=== PATIENT | female | born 1935 | race African-American/Black ===

== ENCOUNTER 2020-02-10 18:56 | Emergency (ER) | payer MEDICARE ==
[~2020-02-10] VITALS: Ht 157.5 cm; Wt 53.6 kg
--- NOTE | 2020-02-10 19:44 | PHYS DOC ---
Past History Past Medical History: Dementia, Depression, Hypertension (CARRIE NOVAK APRN) Past Surgical History: Hysterectomy, Other Additional Past Surgical Histo: urethra, hernia repair (CARRIE NOVAK APRN) Alcohol Use: None (CARRIE NOVAK APRN) Adult General Chief Complaint Chief Complaint: WEAKNESS/GENERALIZED HPI HPI Patient is a 85-year-old female patient who presents with increased falls, weakness, over the last 2 weeks. Daughter reports patient has a history of dementia, has had some declining state over last few weeks as well, with increa sed agitation and violence from the patient. Reports patient had fallen while walking couple days ago, as well as had fallen while seated on the edge of the bed this morning. Reports patient had not been this bad in the past. Daughter also reports patient had been hallucinating as well over the last 2 weeks. Does report patient having 1 similar episode a couple years ago when she had been severely dehydrated. Reports patient also is not eating correctly, will chew her food and then spit it back out. States patient will eat 1 meal a day. This has not changed over the last couple weeks. Patient reports that she feels fine, has no complaints at this time. (CARRIE NOVAK APRN) Review of Systems Review of Systems Constitutional: Denies fever or chills daughter. Patient has had increased weakness and fatigue over the last several weeks [] Eyes: Denies change in visual acuity, redness, or eye pain [] HENT: Denies nasal congestion or sore throat [] Respiratory: Denies cough or shortness of breath [] Cardiovascular: No additional information not addressed in HPI [] GI: Denies abdominal pain, nausea, vomiting, bloody stools or diarrhea [] : Denies dysuria or hematuria does report increased incontinence over the last couple weeks [] Musculoskeletal: Denies back pain or joint pain [] Integument: Denies rash or skin lesions [] Neurologic: Denies headache, focal weakness or sensory changes [] Endocrine: Denies polyuria or polydipsia [] All other systems were reviewed and found to be within normal limits, except as documented in this note. Limited history available from patient due to patient's dementia. Majority of history obtained from daughter who serves with patient caregiver (CARRIE NOVAK APRN) Physical Exam Physical Exam Constitutional: Well developed, well nourished, no acute distress, non-toxic appearance. Chronically frail [] HENT: Normocephalic, atraumatic, bilateral external ears normal, oropharynx moist, no oral exudates, nose normal. [] Eyes: PERRLA, EOMI, conjunctiva normal, no discharge. [] Neck: Normal range of motion, no tenderness, supple, no stridor. [] Cardiovascular:Heart rate regular rhythm, no murmur [] Lungs & Thorax: Bilateral breath sounds clear to auscultation [] Abdomen: Bowel sounds normal, soft, no tenderness, no masses, no pulsatile masses. [] Skin: Warm, dry, no erythema, no rash. [] Back: No tenderness, no CVA tenderness. [] Extremities: No tenderness, no cyanosis, no clubbing, ROM intact, no edema. [] Neurologic: Alert and oriented to self and place, normal motor function, normal sensory function, no focal deficits noted. [] Psychologic: Affect normal,mood normal. [] (CARRIE NOVAK APRN) Current Patient Data Vital Signs Vital Signs Date Time Temp Pulse Resp B/P (MAP) Pulse Ox O2 Delivery O2 Flow Rate FiO2 02/10/20 19:00 100.1 71 18 91/39 (56) 98 Room Air (CARRIE NOVAK APRN) EKG EKG no st change per Dr Sparrow @2024. first degree av block. [] (CARRIE NOVAK APRN) Radiology/Procedures Radiology/Procedures REASON: change in mental status PROCEDURE: CT HEAD WO CONTRAST CT HEAD INDICATION: Altered mental status COMPARISON: None Available. Exposure: One or more of the following individualized dose reduction techniques were utilized for this examination: 1. Automated exposure control 2. Adjustment of the mA and/or kV according to patient size 3. Use of iterative reconstruction technique TECHNIQUE: 5 mm contiguous axial images were obtained from the skull base to the vertex in both bone and soft tissue algorithm. FINDINGS: Mild bilateral pulmonary ventricular white matter hypodensities likely chronic small vessel ischemic disease. No evidence of acute intracranial hemorrhage. No extra-axial fluid collections. No mass effect or midline shift. Ventricular size is appropriate. Basal cisterns are patent. No fractures identified.Jarquin-white differentiation is preserved.Globes and orbits are within normal limits. Paranasal sinuses and mastoid air cells are clear. IMPRESSION: No acute intracranial findings. Electronically signed by: Pierre Cortes MD (02/10/2020 9:03 PM) [id number] [] CHest 1 View - NO acute findings per Dr Sparrow (CARRIE NOVAK APRN) Heart Score HEART Score for Chest Pain: HEART Score for Chest Pain Response (Comments) Value History Slighlty/Non-Suspicious 0 ECG Normal 0 Age > 65 2 Risk Factors No Risk Factors 0 Troponin < Normal Limit 0 Total 2 Risk Factors: Risk Factors: DM, Current or recent (<one month) smoker, HTN, HLP, family history of CAD, obesity. Risk Scores: Risk Factors: DM, Current or recent (<one month) smoker, HTN, HLP, family history of CAD, obesity. (CARRIE NOVAK APRN) Course & Med Decision Making Course & Med Decision Making Pertinent Labs and Imaging studies reviewed. (See chart for details) [Discussed findings with patient caregiver, with no acute signs of infection or serious lab abnormalities today. Discussed consideration for Covid due to low white count, imaging and additional labs do not show any high risk features of Covid. Discussed ensuring patient continue to hydrate, attempt to continue to eat and drink and continued observation. Family in agreement with this plan, states they will take the patient home tonight with no further questions or concerns.] (CARRIE NOVAK APRN) Dragon Disclaimer Dragon Disclaimer This electronic medical record was generated, in whole or in part, using a voice recognition dictation system. (CARRIE NOVAK APRN) Departure Departure: Impression: Primary Impression: Malaise Additional Impressions: Dementia in Alzheimer's disease with early onset with behavioral disturbance Dehydration Disposition: 01 DC HOME SELF CARE/HOMELESS Condition: STABLE Referrals: PCP,NO (PCP) Patient Instructions: Dementia, Weakness, [id number] Additional Instructions: As we discussed, make sure she continues to use her walker when she is walking to limit her risk for falls. Make sure she continue to try to eat and stay hydrated as much as you can. Try to get into her primary care provider to make sure she is improving, try to do this in the next 5 to 7 days. Attending Signature Attending Signature I have reviewed the PA/CASTING ASSOCIATE's note and plan of care. I was available for consultation as needed during the patient's visit in the emergency department. I agree with the clinical impression, plan, and disposition. (CATHY SPARROW DO) Problem Qualifiers CARRIE NOVAK APRN Feb 10, 2020 19:44 CATHY SPARROW DO Feb 10, 2020 22:06
[2020-02-10 20:05] LABS: COLOR,URINE YELLOW
[2020-02-10 20:06] LABS: BACTERIA,URINE FEW /HPF (0-FEW); BILIRUBIN,URINE NEG (NEG); CLARITY,URINE CLEAR; GLUCOSE,URINE NEG (NEG); NITRITE,URINE NEG (NEG); RBC,URINE RARE /HPF (0-2); SQUAMOUS EPITHELIAL CELL,UR FEW /LPF; UROBILINOGEN,URINE 0.2 mg/dL (0.2 mg/dL); WBC,URINE RARE /HPF (0-4)
[2020-02-10 20:15] LABS: BASO % 0 % (0-3); EOS % 0 % (0-3); HEMATOCRIT 32.7 % (36.0-47.0); HEMOGLOBIN 10.5 g/dL (12.0-15.5); LYMPH # 0.6 x10^3/uL (1.0-4.8); LYMPH % 18 % (24-48); MEAN CORPUSCULAR HEMOGLOBIN 29 pg (25-35); MEAN CORPUSCULAR HGB CONC 32 g/dL (31-37); MEAN CORPUSCULAR VOLUME 89 fL (79-100); MONO # 0.3 x10^3/uL (0.0-1.1); MONO % 8 % (0-9); NEUT # 2.4 x10^3uL (1.8-7.7); NEUT % 73 % (31-73); PLATELET COUNT 161 x10^3/uL (140-400); RED BLOOD COUNT 3.67 x10^6/uL (3.50-5.40); RED CELL DISTRIBUTION WIDTH 14.4 % (11.5-14.5); WHITE BLOOD COUNT 3.3 x10^3/uL (4.0-11.0)
[2020-02-10] MEDS ORDERED: IV NORMAL SALINE 1,000ML 1,000 ML IV ONE (20:15)
[2020-02-10 20:23] LABS: CALCIUM 9.5 mg/dL (8.5-10.1); CREATININE 1.5 mg/dL (0.6-1.0); GFR 39.8; POTASSIUM 3.5 mmol/L (3.5-5.1)
[2020-02-10 20:29] LABS: ALBUMIN 3.4 g/dL (3.4-5.0); ALBUMIN/GLOBULIN RATIO 0.9 (1.0-1.7); TOTAL BILIRUBIN 0.2 mg/dL (0.2-1.0); TOTAL PROTEIN 7.4 g/dL (6.4-8.2)
--- NOTE | 2020-02-10 21:05 | RAD ---
CT HEAD INDICATION: Altered mental status COMPARISON: None Available. Exposure: One or more of the following individualized dose reduction techniques were utilized for this examination: 1. Automated exposure control 2. Adjustment of the mA and/or kV according to patient size 3. Use of iterative reconstruction technique TECHNIQUE: 5 mm contiguous axial images were obtained from the skull base to the vertex in both bone and soft tissue algorithm. FINDINGS: Mild bilateral pulmonary ventricular white matter hypodensities likely chronic small vessel ischemic disease. No evidence of acute intracranial hemorrhage. No extra-axial fluid collections. No mass effect or midline shift. Ventricular size is appropriate. Basal cisterns are patent. No fractures identified.Jarquin-white differentiation is preserved.Globes and orbits are within normal limits. Paranasal sinuses and mastoid air cells are clear. IMPRESSION: No acute intracranial findings. Electronically signed by: Pierre Cortes MD (02/10/2020 9:03 PM) [id number]
[2020-02-10 21:50] VITALS: BP 142/56
--- NOTE | 2020-02-10 23:15 | RAD ---
EXAM: CHEST ONE VIEW. HISTORY: Altered mental status. COMPARISON: None. FINDINGS: A frontal view of the chest is obtained. There are no confluent infiltrates. There is no pneumothorax or pleural effusion. The heart is not enlarged. There are atherosclerotic calcifications of the aorta. IMPRESSION: 1. No confluent infiltrates. Electronically signed by: Radha Wilson MD (02/10/2020 11:12 PM) [facility]
== END 2020-02-10 22:00 | disposition home or self-care (01) ==
LOC: ER 18:56
DX: R53.81 Other malaise (principal); G30.9 Alzheimer's disease, unspecified; F02.80 Dementia in other diseases classified elsewhere, unspecified severity, without behavioral disturbance, psychotic disturbance, mood disturbance, and anxiety; E86.0 Dehydration; R44.3 Hallucinations, unspecified; R53.1 Weakness; F32.9 Major depressive disorder, single episode, unspecified; I10 Essential (primary) hypertension; Z90.710 Acquired absence of both cervix and uterus; Z98.890 Other specified postprocedural states
CPT/HCPCS: 36415; 70450; 71045; 80053; 81001; 83605; 84484; 85025; 87040; 93005; 96360; 99285; J7030

== ENCOUNTER 2020-09-06 00:45 | Emergency (ER) | payer MEDICARE, MEDICAID ==
[~2020-09-06] VITALS: Ht 157.5 cm; Wt 53.6 kg
--- NOTE | 2020-09-06 01:02 | PHYS DOC ---
Past History Past Medical History: Arthritis, Dementia, Depression, Hypertension Past Surgical History: Hysterectomy, Other Additional Past Surgical Histo: urethra, hernia repair Alcohol Use: None General Adult EDM: Chief Complaint: MECHANICAL FALL HPI: HPI: 85-year-old female presents via EMS from home after fall. The patient went into the bathroom around midnight, 1 hour ago and she fell into the shower. Family states that they heard a noise. When they went into the bathroom the patient had fallen backwards into the shower. Her upper torso and head were against the back wall and the rest of her body was against the floor. She had 1 episode of vomiting. She was able to stand and be moved to her bed. She started to complain about low back pain. The patient has osteoporosis of family thought it was best to get her checked out. Patient only complains to me of low back pain with movement. She denies any hip or pelvis pain. Review of Systems: Review of Systems: Constitutional: Denies fever or chills Eyes: Denies change in visual acuity HENT: Denies nasal congestion or sore throat Respiratory: Denies cough or shortness of breath Cardiovascular: Denies chest pain or edema GI: Denies abdominal pain, nausea, vomiting, bloody stools or diarrhea : Denies dysuria Musculoskeletal: Low back pain Integument: Denies rash Neurologic: Denies headache, focal weakness or sensory changes Endocrine: Denies polyuria or polydipsia Lymphatic: Denies swollen glands Psychiatric: Denies depression or anxiety Allergies: Allergies: Allergies Coded Allergies Type Severity Reaction Last Updated Verified nifedipine Allergy Unknown 02/10/20 Yes Physical Exam: PE: Constitutional: Well developed, well nourished, no acute distress, non-toxic appearance. [] HENT: Normocephalic, atraumatic, bilateral external ears normal, oropharynx moist, no oral exudates, nose normal. Hard of hearing. [] Eyes: PERRLA, EOMI, conjunctiva normal, no discharge. [] Neck: Normal range of motion, no tenderness, supple, no stridor. [] Cardiovascular: Heart rate regular rhythm, no murmur [] Lungs & Thorax: Bilateral breath sounds clear to auscultation [] Abdomen: Bowel sounds normal, soft, no tenderness, no masses, no pulsatile masses. [] Skin: Warm, dry, no erythema, no rash. [] Back: Paraspinal lumbar tenderness, no lumbar bony tenderness. [] Extremities: No tenderness, no cyanosis, no clubbing, ROM intact, no edema. [] Neurologic: Alert and oriented, normal motor function, normal sensory function, no focal deficits noted. [] Psychologic: Affect normal, judgement normal, mood normal. [] EKG: EKG: [] Radiology/Procedures: Radiology/Procedures: [] Impressions: EXAM: CT HEAD WITHOUT IV CONTRAST CLINICAL HISTORY: Reason: Fall, altered mental status, neck pain / Spl. Instructions: / History: However a CT head cervical COMPARISON: None. TECHNIQUE: Routine CT of the head without contrast. Soft tissues and bone windows were reviewed. PQRS compliance statement - One or more of the following individualized dose reduction techniques were utilized for this study: 1. Automated exposure control 2. Adjustment of the mA and/or kV according to patient size 3. Use of iterative reconstruction technique FINDINGS: There is no evidence of hemorrhage, mass or extra-axial fluid collection. [place]-white differentiation is maintained with no evidence of edema. Subcortical, periventricular as well as deep white matter foci of hypoattenuation likely changes of chronic small vessel disease. There is no mass effect or shift of the intracranial structures. The ventricles and cerebral sulci are prominent for the patients stated age consistent with generalized cerebral volume loss. The cerebellum and brainstem are unremarkable. The calvarium demonstrates no evidence of fracture or focal lesion. There is normal aeration of the visualized paranasal sinuses and mastoid air cells. The visualized portions of the orbits are normal. IMPRESSION: No evidence for acute intracranial process. White matter changes likely chronic small vessel disease. EXAM: CT CERVICAL SPINE WITHOUT IV CONTRAST CLINICAL HISTORY: Reason: Fall, altered mental status, neck pain / Spl. Instructions: / History: COMPARISON: None available. TECHNIQUE: Helical CT of the cervical spine was performed. Axial, coronal and sagittal reformatted images were also performed. PQRS compliance statement - One or more of the following individualized dose reduction techniques were utilized for this study: 1. Automated exposure control 2. Adjustment of the mA and/or kV according to patient size 3. Use of iterative reconstruction technique FINDINGS: Moderate C5-6 and C6-7 disc height loss. Trace anterolisthesis of C7 on T1. Facet degenerative changes at multiple levels. Atlantodental degenerative changes are seen. 8 mm nodular opacity in the left upper lobe. No acute fracture. IMPRESSION: No acute fracture or subluxation. Multilevel degenerative changes Electronically signed by: Aaron Bills MD (09/06/2020 1:55 AM) [facility] DICTATED AND SIGNED BY: AARON BILLS MD DATE: 09/06/20150 CC: JOSE SINGLETON DO; PCP,NO ~MTH0 0 EXAM: AP, lateral and lumbosacral spot views of the lumbar spine DATE: 09/06/2020 12:53 AM INDICATION: Reason: Fall, lower back pain / Spl. Instructions: / History: COMPARISON: No Prior FINDINGS: Vertebral body heights are preserved. Decreased bone mineral density. Moderate L5-S1 disc height loss. Facet degenerative changes L2-3 and below. Moderate colonic stool content. IMPRESSION: 1. Negative acute fracture or subluxation. 2. Multilevel spondylosis. Electronically signed by: Aaron Bills MD (09/06/2020 1:56 AM) [facility] DICTATED AND SIGNED BY: AARON BILLS MD DATE: 09/06/20154 CC: JOSE SINGLETON DO; PCP,NO ~MTH0 0 Heart Score: C/O Chest Pain: N/A Risk Factors: Risk Factors: DM, Current or recent (<one month) smoker, HTN, HLP, family history of CAD, obesity. Risk Scores: Score 0 - 3: 2.5% MACE over next 6 weeks - Discharge Home Score 4 - 6: 20.3% MACE over next 6 weeks - Admit for Clinical Observation Score 7 - 10: 72.7% MACE over next 6 weeks - Early Invasive Strategies Course & Med Decision Making: Course & Med Decision Making Pertinent Labs and Imaging studies reviewed. (See chart for details) The patient's urinalysis is negative for infection. Her CT of the head and cervical spine negative for acute findings. Her lumbar spinal x-ray did not show any fracture or acute disruptions. This is likely soft tissue injury. I have advised supportive care. Patient also has moderate stool volume so I have advised stool softeners. Patient is stable for discharge at this time. [] Antoni Disclaimer: Antoni Disclaimer: This electronic medical record was generated, in whole or in part, using a voice recognition dictation system. Departure Departure: Impression: Primary Impression: Fall from slip, trip, or stumble Qualified Codes: W01.0XXA - Fall on same level from slipping, tripping and stumbling without subsequent striking against object, initial encounter Additional Impressions: Constipation Qualified Codes: K59.00 - Constipation, unspecified Lumbar back sprain Qualified Codes: S33.5XXA - Sprain of ligaments of lumbar spine, initial e ncounter Disposition: 01 HOME / SELF CARE / HOMELESS Condition: STABLE Referrals: PCP,NO (PCP) Patient Instructions: Low Back Strain with [facility] JOSE SINGLETON DO Sep 06, 2020 01:02
--- NOTE | 2020-09-06 01:57 | RAD ---
EXAM: CT HEAD WITHOUT IV CONTRAST CLINICAL HISTORY: Reason: Fall, altered mental status, neck pain / Spl. Instructions: / History: Miguel palomino CT head cervical COMPARISON: None. TECHNIQUE: Routine CT of the head without contrast. Soft tissues and bone windows were reviewed. PQRS compliance statement - One or more of the following individualized dose reduction techniques wer e utilized for this study: 1. Automated exposure control 2. Adjustment of the mA and/or kV according to patient size 3. Use of iterative reconstruction technique FINDINGS: There is no evidence of hemorrhage, mass or extra-axial fluid collection. [place]-white differentiation is maintained with no evidence of edema. Subcortical, periventricular as w ell as deep white matter foci of hypoattenuation likely changes of chronic small vessel disease. There is no mass effect or shift of the intracranial structures. The ventricles and cerebral sulci are prominent for the patients stated age consistent with generaliz ed cerebral volume loss. The cerebellum and brainstem are unremarkable. The calvarium demonstrates no evidence of fracture or focal lesion. There is normal aeration of the visualized paranasal sinuses and mastoid air cells. The visualized portions of the orbits are normal. IMPRESSION: No evidence for acute intracranial process. White matter changes likely chronic small vessel disease. EXAM: CT CERVICAL SPINE WITHOUT IV CONTRAST CLINICAL HISTORY: Reason: Fall, altered mental status, neck pain / Spl. Instructions: / History: COMPARISON: None available. TECHNIQUE: Helical CT of the cervical spine was performed. Axial, coronal and sagittal reformatted im ages were also performed. PQRS compliance statement - One or more of the following individualized dose reduction techniques wer e utilized for this study: 1. Automated exposure control 2. Adjustment of the mA and/or kV according to patient size 3. Use of iterative reconstruction technique FINDINGS: Moderate C5-6 and C6-7 disc height loss. Trace anterolisthesis of C7 on T1. Facet degenerative change s at multiple levels. Atlantodental degenerative changes are seen. 8 mm nodular opacity in the left upper lobe. No acute fracture. IMPRESSION: No acute fracture or subluxation. Multilevel degenerative changes Electronically signed by: Aaron Bills MD (09/06/2020 1:55 AM) [facility]
--- NOTE | 2020-09-06 01:58 | RAD ---
EXAM: AP, lateral and lumbosacral spot views of the lumbar spine DATE: 09/06/2020 12:53 AM INDICATION: Reason: Fall, lower back pain / Spl. Instructions: / History: COMPARISON: No Prior FINDINGS: Vertebral body heights are preserved. Decreased bone mineral density. Moderate L5-S1 disc height loss . Facet degenerative changes L2-3 and below. Moderate colonic stool content. IMPRESSION: 1. Negative acute fracture or subluxation. 2. Multilevel spondylosis. Electronically signed by: Aaron Bills MD (09/06/2020 1:56 AM) [facility]
[2020-09-06 02:00] LABS: BACTERIA,URINE FEW /HPF (0-FEW); BILIRUBIN,URINE NEG (NEG); CLARITY,URINE CLEAR; COLOR,URINE YELLOW; GLUCOSE,URINE NEG (NEG); NITRITE,URINE NEG (NEG); RBC,URINE 0 /HPF (0-2); SQUAMOUS EPITHELIAL CELL,UR MOD /LPF; UROBILINOGEN,URINE 0.2 mg/dL (0.2 mg/dL)
[2020-09-06 03:00] VITALS: BP 183/97
== END 2020-09-06 03:00 | disposition home or self-care (01) ==
LOC: ER 00:45
DX: S33.5XXA Sprain of ligaments of lumbar spine, initial encounter (principal); K59.00 Constipation, unspecified; M19.90 Unspecified osteoarthritis, unspecified site; F03.90 Unspecified dementia, unspecified severity, without behavioral disturbance, psychotic disturbance, mood disturbance, and anxiety; F32.9 Major depressive disorder, single episode, unspecified; I10 Essential (primary) hypertension; Z88.8 Allergy status to other drugs, medicaments and biological substances; W01.0XXA Fall on same level from slipping, tripping and stumbling without subsequent striking against object, initial encounter; Y93.89 Activity, other specified; Y92.89 Other specified places as the place of occurrence of the external cause; Y99.8 Other external cause status
CPT/HCPCS: 70450; 72100; 72125; 81001; 87086; 99285